=== PATIENT | female | born 1960 | race Caucasian/White ===

== ENCOUNTER 2021-04-09 15:27 | Emergency (ER) | payer BC ==
[2021-04-09] MEDS ORDERED: Aspirin Chewable 81 MG TAB ONE (15:54)
[2021-04-09 15:58] LABS: #Basophils 0.1 10x3/uL (0.0-0.2); #Eosinphils 0.2 10x3/uL (0.0-0.5); #Monocytes 0.8 10x3/uL (0.0-1.1); #Neutrophils 6.2 10x3/uL (1.5-8.4); %Basophils 0.9 % (0.0-2.0); %Eosinophils 1.7 % (0.0-6.0); %Lymphocytes 28.1 % (18.0-47.0); %Monocytes 8.2 % (0.0-10.0); %Neutrophils 60.6 % (40.0-75.0); Hemoglobin 14.1 g/dL (12.0-15.5); Mean Corpuscular HGB CONC 33.7 g/dL (32.0-36.0); Mean Corpuscular Hemoglobin 36.7 pg (27.0-33.0); Mean Corpuscular Volume 109.1 fl (81.6-98.3); Mean Platelet Volume 10.1 fl (7.4-10.4); Platelet Count 316 10x3/uL (150-450); RBC Distribution Width 13.5 % (11.5-14.5); Red Blood Cell (RBC) Count 3.84 10x6/uL (3.90-5.03); White Blood Cell (WBC) Count 10.2 10x3/uL (3.5-10.5)
[2021-04-09 16:37] LABS: Macrocytosis SLIGHT = 6-15 cells (100X) (0-5/hpf); Ovalocytes SLIGHT = 2-5 cells (100X) (0-1/hpf); Platelet Morphology Comment Appears Adequate; Tear Drops SLIGHT = 2-5 cells (100X) (0-1/hpf)
[2021-04-09 17:00] LABS: ALT (SGPT) 23 U/L (8-55); AST (SGOT) 17 U/L (5-34); Albumin 4.9 g/dL (3.4-4.8); Alkaline Phosphatase 51 U/L (40-110); Anion Gap 19 mmol/L (10-20); BUN (Urea Nitrogen) 26 mg/dL (9.8-20.1); Bilirubin, Total 0.4 mg/dL (0.2-1.2); Calc. Creatinine Clearance 0 mL/min (70-130); Calcium 9.9 mg/dL (7.8-10.44); Carbon Dioxide 21 mmol/L (23-31); Chloride 104 mmol/L (98-107); Glucose 104 mg/dL (80-115); Lipase 22 U/L (8-78); Potassium 4.5 mmol/L (3.5-5.1); Protein, Total 7.9 g/dL (5.8-8.1); Sodium 139 mmol/L (136-145)
[2021-04-09 17:04] LABS: Magnesium 2.1 mg/dL (1.6-2.6)
[2021-04-09 17:25] LABS: Free T4 (Free Thyroxine) 1.19 ng/dL (0.70-1.48); Thyroid Stimulating Hormone 0.3207 uIU/mL (0.35-4.94)
== END 2021-04-09 19:38 | disposition home or self-care (01) ==
LOC: CSHERS 15:27
DX: R07.89 Other chest pain (principal); I25.10 Atherosclerotic heart disease of native coronary artery without angina pectoris; I10 Essential (primary) hypertension; I48.91 Unspecified atrial fibrillation; Z79.01 Long term (current) use of anticoagulants
CPT/HCPCS: 36415; 80053; 83690; 83735; 84439; 84443; 84484; 85025; 93005; 94760

== ENCOUNTER 2021-05-08 12:56 | Outpatient (CLI) | payer BC ==
[2021-05-08 15:03] LABS: Hemoglobin 12.3 g/dL (12.0-15.5); Mean Corpuscular HGB CONC 32.9 g/dL (32.0-36.0); Mean Corpuscular Hemoglobin 36.1 pg (27.0-33.0); Mean Corpuscular Volume 109.7 fl (81.6-98.3); Mean Platelet Volume 10.1 fl (7.4-10.4); Platelet Count 303 10x3/uL (150-450); RBC Distribution Width 13.8 % (11.5-14.5); Red Blood Cell (RBC) Count 3.41 10x6/uL (3.90-5.03); White Blood Cell (WBC) Count 7.3 10x3/uL (3.5-10.5)
[2021-05-08 15:12] LABS: Prothrombin Time 10.6 sec (9.5-12.1)
[2021-05-08 15:15] LABS: Anion Gap 15 mmol/L (10-20); BUN (Urea Nitrogen) 22 mg/dL (9.8-20.1); Calc. Creatinine Clearance 0 mL/min (70-130); Carbon Dioxide 23 mmol/L (23-31); Chloride 108 mmol/L (98-107); Potassium 4.8 mmol/L (3.5-5.1); Sodium 141 mmol/L (136-145)
[2021-05-08 15:16] LABS: Calcium 9.5 mg/dL (7.8-10.44); Glucose 96 mg/dL (80-115)
[2021-05-09 00:39] LABS: SARS-CoV-2 PCR by NAA Not Detected (NotDetected)
== END 2021-05-08 12:57 | disposition home or self-care (01) ==
LOC: CSHLAB 12:56
PROVIDERS: ATTEND Orthopaedic Surgery
DX: Z01.812 Encounter for preprocedural laboratory examination (principal); Z20.822 Contact with and (suspected) exposure to COVID-19; M54.50 Low back pain, unspecified; M54.16 Radiculopathy, lumbar region
CPT/HCPCS: 80048; 85027; 85610; 85730; 86850; 86900; 86901; U0003; U0005

== ENCOUNTER 2021-05-13 05:27 | Inpatient (IN) | payer BC ==
[2021-05-08 15:03] LABS: Hemoglobin 12.3 g/dL (12.0-15.5); Mean Corpuscular HGB CONC 32.9 g/dL (32.0-36.0); Mean Corpuscular Hemoglobin 36.1 pg (27.0-33.0); Mean Corpuscular Volume 109.7 fl (81.6-98.3); Mean Platelet Volume 10.1 fl (7.4-10.4); Platelet Count 303 10x3/uL (150-450); RBC Distribution Width 13.8 % (11.5-14.5); Red Blood Cell (RBC) Count 3.41 10x6/uL (3.90-5.03); White Blood Cell (WBC) Count 7.3 10x3/uL (3.5-10.5)
[2021-05-08 15:12] LABS: Prothrombin Time 10.6 sec (9.5-12.1)
[2021-05-08 15:15] LABS: Anion Gap 15 mmol/L (10-20); BUN (Urea Nitrogen) 22 mg/dL (9.8-20.1); Calc. Creatinine Clearance 0 mL/min (70-130); Carbon Dioxide 23 mmol/L (23-31); Chloride 108 mmol/L (98-107); Potassium 4.8 mmol/L (3.5-5.1); Sodium 141 mmol/L (136-145)
[2021-05-08 15:16] LABS: Calcium 9.5 mg/dL (7.8-10.44); Glucose 96 mg/dL (80-115)
[2021-05-09 00:39] LABS: SARS-CoV-2 PCR by NAA Not Detected (NotDetected)
[2021-05-09 14:02] VITALS: BMI 34.9
[2021-05-13] MEDS ORDERED: Famotidine/PF 20 mg/2ml Vial ONE (06:10)
[2021-05-13] MEDS ORDERED: Lidocaine 1% MPF 2 ML VIAL ONE (06:10)
[2021-05-13] MEDS ORDERED: EPINEPHrine 1 MG/ML AMP ONE (06:39)
[2021-05-13] MEDS ORDERED: Bupivacaine 0.25% HCL 30 ML VIAL ONE (06:39)
[2021-05-13] MEDS ORDERED: Ketamine 50 MG/ML (10ML VIAL) ONE (06:50)
[2021-05-13] MEDS ORDERED: Propofol 1,000 MG/100 ML VIAL IV ONE (06:50)
[2021-05-13] MEDS ORDERED: PROPOFOL 20 ML ONE (06:53)
[2021-05-13] MEDS ORDERED: ePHEDrine Sulfate 50 MG/10 ML VIAL ONE ×3 (06:54→11:12)
[2021-05-13] MEDS ORDERED: Glycopyrrolate 0.2 MG/ML 5 ML SYRINGE ONE (06:54)
[2021-05-13] MEDS ORDERED: Succinylcholine 200 MG/10 ml SYRINGE FS ONE (06:54)
[2021-05-13] MEDS ORDERED: PHENYLEPHRINE-NS 100 MCG/ML 10 ML SYRINGE ONE (06:54)
[2021-05-13] MEDS ORDERED: Dexamethasone 20 MG/5 ML VIAL ONE (06:54)
[2021-05-13] MEDS ORDERED: Ondansetron PF 4 MG/2 ML Vial ONE (06:54)
[2021-05-13] MEDS ORDERED: Lidocaine 2% PF 5 ML VIAL ONE (06:54)
[2021-05-13] MEDS ORDERED: Metoclopramide HCl 10 MG/2 ML VIAL ONE (06:54)
[2021-05-13] MEDS ORDERED: Midazolam HCl 2 mg/2 ml Vial ONE (08:13)
[2021-05-13] MEDS ORDERED: Fentanyl 100 MCG/2 ML VIAL ONE ×3 (08:34→12:29)
[2021-05-13] MEDS ORDERED: traMADol HCl 50 MG TAB PO PRN (11:42)
[2021-05-13] MEDS ORDERED: Polyethylene Glycol 3350 17 GM Packet PO PRN (11:44)
[2021-05-13] MEDS ORDERED: HYDROcodone/Acetaminophen 5/325 mg Tablet PO PRN (11:44)
[2021-05-13] MEDS ORDERED: TETANUS AND DIPHTHERIA TOX/PF 0.5 ML DISP.SYRIN IM SCH (11:45)
[2021-05-13] MEDS ORDERED: Cyanocobalamin 1000 MCG/ML VIAL SC SCH (11:45)
[2021-05-13] MEDS ORDERED: Communication Order-Pharmacy FS SCH (11:45)
[2021-05-13] MEDS ORDERED: HYDROmorphone 0.5 MG/0.5 ML SYRINGE ONE ×2 (12:05→12:17)
[2021-05-13] MEDS: Morphine 4 MG/ML VIAL SLOW IVP PRN ×6 (13:51→23:21)
[2021-05-13] MEDS ORDERED: Estradiol 0.1mg/24 Hour Patch (Weekly) TD SCH (14:00)
[2021-05-13] MEDS: CEFAZOLIN 2 GM in Premix Bag 1 BAG IVPB SCH ×2 (14:10→20:55)
[2021-05-13] MEDS: Lorazepam 1 MG TAB PO PRN (15:30)
[2021-05-13] MEDS ORDERED: Ventolin HFA Inhaler 60 PUFF INHALER INH PRN (19:00)
[2021-05-13] MEDS ORDERED: tiZANidine HCl 4 MG TAB PO PRN (19:56)
[2021-05-13] MEDS: tiZANidine HCl 4 MG TAB PO SCH (20:52)
[2021-05-13] MEDS: Potassium Chloride 20 MEQ TAB PO SCH (20:52)
[2021-05-13] MEDS: valACYclovir 500 MG TAB PO SCH (20:52)
[2021-05-13] MEDS: Zolpidem Tartrate 5 MG TAB PO SCH (20:52)
[2021-05-13] MEDS: Aspirin 81 mg Enteric Coated Tablet PO SCH (20:52)
[2021-05-13] MEDS: Magnesium Oxide 400 MG TAB PO SCH (20:53)
[2021-05-13] MEDS: Flecainide 50 MG TAB PO SCH (20:54)
[2021-05-13] MEDS ORDERED: Lisinopril 2.5 MG TAB PO SCH (21:00)
[2021-05-13] MEDS: HYDROcodone/Acetaminophen 10/325 mg Tablet PO PRN ×2 (22:30→23:09)
[2021-05-14] MEDS ORDERED: Simethicone Chewable 80 MG TAB PO PRN (01:19)
[2021-05-14] MEDS ORDERED: Calcium Carbonate 500 MG ChewTAB PO PRN (01:20)
[2021-05-14] MEDS: Morphine 4 MG/ML VIAL SLOW IVP PRN ×7 (01:20→22:09)
[2021-05-14] MEDS ORDERED: Ondansetron PF 4 MG/2 ML Vial IVP SCH (01:30)
[2021-05-14] MEDS ORDERED: Mometasone/Formoterol 200/5 60 PUFF INH PRN (07:00)
[2021-05-14] MEDS: CEFAZOLIN 2 GM in Premix Bag 1 BAG IVPB SCH ×2 (07:07→14:07)
[2021-05-14] MEDS: Ondansetron PF 4 MG/2 ML Vial IVP PRN ×2 (08:37→14:28)
[2021-05-14] MEDS: Flecainide 50 MG TAB PO SCH ×2 (08:51→20:16)
[2021-05-14] MEDS: Multivit, Therapeutic 1 TAB PO SCH (08:52)
[2021-05-14] MEDS: valACYclovir 500 MG TAB PO SCH ×2 (08:52→20:28)
[2021-05-14] MEDS: Aspirin 81 mg Enteric Coated Tablet PO SCH ×2 (08:53→20:17)
[2021-05-14] MEDS: Magnesium Oxide 400 MG TAB PO SCH ×2 (08:53→20:28)
[2021-05-14] MEDS: Lorazepam 1 MG TAB PO PRN (08:53)
[2021-05-14] MEDS: Fish Oil 1,000 MG CAP PO SCH (08:54)
[2021-05-14] MEDS ORDERED: Nitroglycerin 0.4 MG TAB (25 Tab Bottle) SL SCH (09:00)
[2021-05-14] MEDS ORDERED: Aspirin 81 mg Enteric Coated Tablet PO SCH (09:00)
[2021-05-14] MEDS: HYDROcodone/Acetaminophen 10/325 mg Tablet PO PRN ×4 (10:10→20:14)
[2021-05-14] MEDS ORDERED: FLU VACC QS2021-22(6MOS UP)/PF 60 MCG/0.5 ML SYRINGE IM ONE (20:15)
[2021-05-14] MEDS: Atenolol 25 MG TAB PO SCH (20:16)
[2021-05-14] MEDS: Lisinopril 2.5 MG TAB PO SCH (20:18)
[2021-05-14] MEDS ORDERED: Albuterol Sulfate 2.5 mg/3 ml Neb NEB PRN (20:19)
[2021-05-14] MEDS ORDERED: Cepastat Lozenges 1 LOZ PO PRN (20:20)
[2021-05-14] MEDS: Potassium Chloride 20 MEQ TAB PO SCH (20:29)
[2021-05-14] MEDS: tiZANidine HCl 4 MG TAB PO SCH (20:29)
[2021-05-14] MEDS ORDERED: Atenolol 25 MG TAB PO SCH (21:00)
[2021-05-14] MEDS ORDERED: Benzonatate 100 MG CAP PO PRN (21:48)
[2021-05-14] MEDS: Albuterol Sulfate 2.5 mg/3 ml Neb NEB PRN (22:15)
[2021-05-14] MEDS: Zolpidem Tartrate 5 MG TAB PO SCH (22:58)
[2021-05-15] MEDS: HYDROcodone/Acetaminophen 10/325 mg Tablet PO PRN ×3 (00:23→14:56)
[2021-05-15] MEDS: Morphine 4 MG/ML VIAL SLOW IVP PRN ×2 (03:44→07:36)
[2021-05-15 05:04] LABS: #Eosinphils 0.1 10x3/uL (0.0-0.5); #Monocytes 0.9 10x3/uL (0.0-1.1); #Neutrophils 4.2 10x3/uL (1.5-8.4); %Basophils 0.4 % (0.0-2.0); %Lymphocytes 31.8 % (18.0-47.0); %Monocytes 11.9 % (0.0-10.0); %Neutrophils 54.6 % (40.0-75.0); Hemoglobin 8.6 g/dL (12.0-15.5); Mean Corpuscular HGB CONC 32.8 g/dL (32.0-36.0); Mean Corpuscular Hemoglobin 36.6 pg (27.0-33.0); Mean Corpuscular Volume 111.5 fl (81.6-98.3); Mean Platelet Volume 10.4 fl (7.4-10.4); Platelet Count 187 10x3/uL (150-450); Red Blood Cell (RBC) Count 2.35 10x6/uL (3.90-5.03); White Blood Cell (WBC) Count 7.7 10x3/uL (3.5-10.5)
[2021-05-15 05:13] LABS: Anion Gap 10 mmol/L (10-20); BUN (Urea Nitrogen) 13 mg/dL (9.8-20.1); Calc. Creatinine Clearance 117 mL/min (70-130); Calcium 8.1 mg/dL (7.8-10.44); Carbon Dioxide 24 mmol/L (23-31); Chloride 106 mmol/L (98-107); Glucose 96 mg/dL (80-115); Sodium 136 mmol/L (136-145)
[2021-05-15 06:08] LABS: Macrocytosis SLIGHT = 6-15 cells (100X) (0-5/hpf)
[2021-05-15 06:09] LABS: Spherocytes SLIGHT = 1-5 cells (100X) (None Seen)
[2021-05-15] MEDS: Multivit, Therapeutic 1 TAB PO SCH (09:50)
[2021-05-15] MEDS: Fish Oil 1,000 MG CAP PO SCH (09:51)
[2021-05-15] MEDS: Magnesium Oxide 400 MG TAB PO SCH ×2 (09:51→22:14)
[2021-05-15] MEDS: Aspirin 81 mg Enteric Coated Tablet PO SCH ×2 (09:51→22:12)
[2021-05-15] MEDS: valACYclovir 500 MG TAB PO SCH ×2 (09:53→22:13)
[2021-05-15] MEDS: Flecainide 50 MG TAB PO SCH ×2 (09:54→22:14)
[2021-05-15] MEDS ORDERED: Acetaminophen 325 MG Suppository PR PRN (15:05)
[2021-05-15] MEDS ORDERED: Lidocaine 5% Patch TD PRN (15:06)
[2021-05-15] MEDS: Lorazepam 1 MG TAB PO PRN (15:11)
[2021-05-15] MEDS ORDERED: Morphine IR Tab 15 MG TAB PO PRN (15:13)
[2021-05-15] MEDS ORDERED: Lorazepam 1 MG TAB PO PRN (15:18)
[2021-05-15] MEDS ORDERED: Morphine 4 MG/ML VIAL SLOW IVP PRN (15:18)
[2021-05-15] MEDS ORDERED: DULoxetine 30 MG CAP PO SCH (15:30)
[2021-05-15] MEDS: Acetaminophen 500 MG TAB PO SCH ×2 (18:45→22:13)
[2021-05-15] MEDS: Potassium Chloride 20 MEQ TAB PO SCH (22:13)
[2021-05-15] MEDS: Zolpidem Tartrate 5 MG TAB PO SCH (22:15)
[2021-05-15] MEDS: Gabapentin 100 MG CAP PO SCH (22:15)
[2021-05-15] MEDS: Atenolol 25 MG TAB PO SCH (22:15)
[2021-05-15] MEDS: Lisinopril 2.5 MG TAB PO SCH (22:15)
[2021-05-15] MEDS: tiZANidine HCl 4 MG TAB PO SCH (22:15)
[2021-05-16] MEDS: Acetaminophen 500 MG TAB PO SCH ×2 (04:10→09:38)
[2021-05-16] MEDS: HYDROcodone/Acetaminophen 5/325 mg Tablet PO PRN ×4 (04:13→18:55)
[2021-05-16 04:24] LABS: Anion Gap 14 mmol/L (10-20); BUN (Urea Nitrogen) 9 mg/dL (9.8-20.1); Calc. Creatinine Clearance 129 mL/min (70-130); Calcium 8.7 mg/dL (7.8-10.44); Carbon Dioxide 19 mmol/L (23-31); Chloride 109 mmol/L (98-107); Glucose 88 mg/dL (80-115); Potassium 4.3 mmol/L (3.5-5.1); Sodium 138 mmol/L (136-145)
[2021-05-16] MEDS ORDERED: DULoxetine 30 MG CAP PO SCH (09:00)
[2021-05-16] MEDS ORDERED: PENTOSAN POLYSULFATE SODIUM 100 MG PO SCH (09:00)
[2021-05-16] MEDS ORDERED: BEMPEDOIC ACID 180 MG PO SCH (09:00)
[2021-05-16] MEDS: Gabapentin 100 MG CAP PO SCH (09:37)
[2021-05-16] MEDS: Fish Oil 1,000 MG CAP PO SCH (09:37)
[2021-05-16] MEDS: Multivit, Therapeutic 1 TAB PO SCH (09:38)
[2021-05-16] MEDS: valACYclovir 500 MG TAB PO SCH (09:38)
[2021-05-16] MEDS: Magnesium Oxide 400 MG TAB PO SCH (09:38)
[2021-05-16] MEDS: Flecainide 50 MG TAB PO SCH (09:38)
[2021-05-16] MEDS: Aspirin 81 mg Enteric Coated Tablet PO SCH (09:38)
[2021-05-16 12:58] VITALS: TEMP 97.1
[2021-05-16 13:26] VITALS: BP 108/65
[2021-05-16] MEDS: GARLIC PO SCH (14:53)
[2021-05-16] MEDS: Albuterol Sulfate 2.5 mg/3 ml Neb NEB PRN (15:09)
[2021-05-16] MEDS ORDERED: Acetaminophen 325 MG TAB PO SCH (16:00)
[2021-05-17] MEDS ORDERED: ESTRADIOL VAG SCH (09:00)
== END 2021-05-16 19:15 | DRG 454 ==
LOC: CSHSDC 05:27 → CSHTELE 13:39
PROVIDERS: ADMIT Orthopaedic Surgery; ATTEND Orthopaedic Surgery
PROC: 0SG00AJ Fusion of Lumbar Vertebral Joint with Interbody Fusion Device, Posterior Approach, Anterior Column, Open Approach (ICD-10-PCS; principal; 2021-05-13)
PROC: 0SG0071 Fusion of Lumbar Vertebral Joint with Autologous Tissue Substitute, Posterior Approach, Posterior Column, Open Approach (ICD-10-PCS; 2021-05-13)
DX: M51.16 Intervertebral disc disorders with radiculopathy, lumbar region (principal); F11.20 Opioid dependence, uncomplicated; F13.20 Sedative, hypnotic or anxiolytic dependence, uncomplicated; Z20.822 Contact with and (suspected) exposure to COVID-19; G89.29 Other chronic pain; M41.9 Scoliosis, unspecified; I25.10 Atherosclerotic heart disease of native coronary artery without angina pectoris; I10 Essential (primary) hypertension; E78.5 Hyperlipidemia, unspecified; J45.909 Unspecified asthma, uncomplicated; I48.0 Paroxysmal atrial fibrillation; M48.061 Spinal stenosis, lumbar region without neurogenic claudication; E03.9 Hypothyroidism, unspecified; F41.9 Anxiety disorder, unspecified; F32.A Depression, unspecified; R50.82 Postprocedural fever; Z95.1 Presence of aortocoronary bypass graft; Z95.5 Presence of coronary angioplasty implant and graft; Z88.2 Allergy status to sulfonamides; Z88.1 Allergy status to other antibiotic agents; Z88.8 Allergy status to other drugs, medicaments and biological substances; Z79.01 Long term (current) use of anticoagulants; Z79.899 Other long term (current) drug therapy; Z90.89 Acquired absence of other organs; Z90.710 Acquired absence of both cervix and uterus; Z98.1 Arthrodesis status; Z79.82 Long term (current) use of aspirin
CPT/HCPCS: 36415; 71045; 72110; 76000; 80048; 85025; 85027; 85610; 85730; 86850; 86900; 86901; 94640; 94760; C1713; C1762; C1889; J0171; J0690; J1100; J1170; J2001; J2250; J2270; J2405; J2704; J2765; J3010; J7611; S0020; S0028; U0003; U0005

== ENCOUNTER 2021-06-23 13:53 | Emergency (ER) | payer BC ==
[2021-06-23 16:01] LABS: #Basophils 0.1 10x3/uL (0.0-0.2); #Eosinphils 0.1 10x3/uL (0.0-0.5); #Monocytes 0.6 10x3/uL (0.0-1.1); #Neutrophils 3.1 10x3/uL (1.5-8.4); %Eosinophils 1.9 % (0.0-6.0); %Lymphocytes 32.8 % (18.0-47.0); %Neutrophils 53.1 % (40.0-75.0); Mean Corpuscular Hemoglobin 33.8 pg (27.0-33.0); Mean Corpuscular Volume 105.8 fl (81.6-98.3); Mean Platelet Volume 10.1 fl (7.4-10.4); Platelet Count 358 10x3/uL (150-450); RBC Distribution Width 13.1 % (11.5-14.5); Red Blood Cell (RBC) Count 3.25 10x6/uL (3.90-5.03); White Blood Cell (WBC) Count 5.8 10x3/uL (3.5-10.5)
[2021-06-23 16:21] LABS: ALT (SGPT) 12 U/L (8-55); AST (SGOT) 15 U/L (5-34); Albumin 4.2 g/dL (3.4-4.8); Alkaline Phosphatase 48 U/L (40-110); Anion Gap 15 mmol/L (10-20); BUN (Urea Nitrogen) 22 mg/dL (9.8-20.1); Bilirubin, Total 0.3 mg/dL (0.2-1.2); Calc. Creatinine Clearance 0 mL/min (70-130); Calcium 9.2 mg/dL (7.8-10.44); Carbon Dioxide 21 mmol/L (23-31); Chloride 108 mmol/L (98-107); Globulin 2.1 g/dL (2.4-3.5); Glucose 85 mg/dL (80-115); Lipase 31 U/L (8-78); Protein, Total 6.3 g/dL (5.8-8.1); Sodium 139 mmol/L (136-145)
[2021-06-23] MEDS ORDERED: Nitroglycerin 2% Ointment 1 INCH/1 GM Packet ONE (17:36)
== END 2021-06-23 18:16 | disposition home or self-care (01) ==
LOC: CSHERS 13:53
DX: R42 Dizziness and giddiness (principal); I25.10 Atherosclerotic heart disease of native coronary artery without angina pectoris; I48.91 Unspecified atrial fibrillation; I10 Essential (primary) hypertension
CPT/HCPCS: 70450; 71045; 80053; 83690; 84484; 85025; 93005

== ENCOUNTER 2021-08-05 11:58 | Emergency (ER) | payer BC ==
[2021-08-05 12:34] LABS: #Basophils 0.1 10x3/uL (0.0-0.2); #Eosinphils 0.1 10x3/uL (0.0-0.5); #Monocytes 0.8 10x3/uL (0.0-1.1); #Neutrophils 3.3 10x3/uL (1.5-8.4); %Basophils 0.8 % (0.0-2.0); %Eosinophils 1.9 % (0.0-6.0); %Lymphocytes 32.2 % (18.0-47.0); %Monocytes 12.8 % (0.0-10.0); Hemoglobin 11.8 g/dL (12.0-15.5); Mean Corpuscular HGB CONC 33.5 g/dL (32.0-36.0); Mean Corpuscular Hemoglobin 33.1 pg (27.0-33.0); Mean Corpuscular Volume 98.6 fl (81.6-98.3); Mean Platelet Volume 10.2 fl (7.4-10.4); Platelet Count 281 10x3/uL (150-450); RBC Distribution Width 15.4 % (11.5-14.5); Red Blood Cell (RBC) Count 3.57 10x6/uL (3.90-5.03); White Blood Cell (WBC) Count 6.3 10x3/uL (3.5-10.5)
[2021-08-05 12:46] LABS: ALT (SGPT) 23 U/L (8-55); AST (SGOT) 18 U/L (5-34); Albumin 4.4 g/dL (3.4-4.8); Alkaline Phosphatase 46 U/L (40-110); Anion Gap 15 mmol/L (10-20); BUN (Urea Nitrogen) 24 mg/dL (9.8-20.1); Bilirubin, Total 0.4 mg/dL (0.2-1.2); Calc. Creatinine Clearance 0 mL/min (70-130); Calcium 9.1 mg/dL (7.8-10.44); Carbon Dioxide 22 mmol/L (23-31); Chloride 106 mmol/L (98-107); Globulin 2.2 g/dL (2.4-3.5); Glucose 96 mg/dL (80-115); Potassium 4.5 mmol/L (3.5-5.1); Protein, Total 6.6 g/dL (5.8-8.1); Sodium 138 mmol/L (136-145)
[2021-08-05] MEDS ORDERED: Nitroglycerin 2% Ointment 1 INCH/1 GM Packet ONE (14:20)
[2021-08-05 14:53] LABS: Bilirubin Neg (Negative); Blood, Urine Negative (Negative); Clarity Clear (Clear); Glucose, Urine (Dipstick) Normal (Negative); Ketone, Urine Negative (Negative); Leukocyte Negative (Negative); Nitrite Negative (Negative); Protein, Urine (Dipstick) Negative (Neg-Trace); Urobilinogen Normal mg/dL (Less than 2)
[2021-08-05 15:37] LABS: Troponin I Less than 0.010 ng/mL (< 0.028)
== END 2021-08-05 15:47 | disposition home or self-care (01) ==
LOC: CSHERS 11:58
DX: R07.2 Precordial pain (principal); I10 Essential (primary) hypertension; I48.91 Unspecified atrial fibrillation
CPT/HCPCS: 36415; 71045; 80053; 81003; 83880; 84484; 85025; 93005

== ENCOUNTER 2021-12-16 13:20 | Observation (INO) | payer BC ==
[2021-12-16 14:42] LABS: #Basophils 0.1 10x3/uL (0.0-0.2); #Eosinphils 0.1 10x3/uL (0.0-0.5); #Monocytes 0.7 10x3/uL (0.0-1.1); #Neutrophils 5.7 10x3/uL (1.5-8.4); %Basophils 0.6 % (0.0-2.0); %Eosinophils 1.3 % (0.0-6.0); %Lymphocytes 23.4 % (18.0-47.0); %Monocytes 8.3 % (0.0-10.0); %Neutrophils 66.2 % (40.0-75.0); Hemoglobin 12.9 g/dL (12.0-15.5); Mean Corpuscular HGB CONC 34.3 g/dL (32.0-36.0); Mean Corpuscular Hemoglobin 35.1 pg (27.0-33.0); Mean Corpuscular Volume 102.5 fl (81.6-98.3); Mean Platelet Volume 10.1 fl (7.4-10.4); Platelet Count 260 10x3/uL (150-450); RBC Distribution Width 14.7 % (11.5-14.5); Red Blood Cell (RBC) Count 3.67 10x6/uL (3.90-5.03); White Blood Cell (WBC) Count 8.7 10x3/uL (3.5-10.5)
[2021-12-16 15:01] LABS: ALT (SGPT) 23 U/L (8-55); Albumin 4.2 g/dL (3.4-4.8); Alkaline Phosphatase 47 U/L (40-110); Anion Gap 19 mmol/L (10-20); BUN (Urea Nitrogen) 23 mg/dL (9.8-20.1); Bilirubin, Total 0.4 mg/dL (0.2-1.2); Calc. Creatinine Clearance 0 mL/min (70-130); Calcium 9.1 mg/dL (7.8-10.44); Carbon Dioxide 21 mmol/L (23-31); Chloride 105 mmol/L (98-107); Estimated GFR 83; Globulin 2.8 g/dL (2.4-3.5); Glucose 81 mg/dL (80-115); Potassium 3.8 mmol/L (3.5-5.1); Sodium 141 mmol/L (136-145)
[2021-12-16 15:02] LABS: AST (SGOT) 28 U/L (5-34)
[2021-12-16] MEDS ORDERED: Acetaminophen 325 MG TAB PO PRN (17:07)
[2021-12-16] MEDS ORDERED: Ondansetron ODT 4 MG TAB PO PRN (17:07)
[2021-12-16] MEDS ORDERED: Senokot S 8.6-50 MG TAB PO PRN (17:07)
[2021-12-16 17:52] LABS: Magnesium 1.7 mg/dL (1.6-2.6)
[2021-12-16 18:28] LABS: Troponin I Less than 0.010 ng/mL (< 0.028)
[2021-12-16] MEDS ORDERED: Nitroglycerin 2% Ointment 1 INCH/1 GM Packet TOP SCH (18:30)
[2021-12-16 19:51] LABS: Bilirubin Neg (Negative); Blood, Urine Negative (Negative); Clarity Clear (Clear); Glucose, Urine (Dipstick) Normal (Negative); Ketone, Urine 50 mg/dL (Negative); Leukocyte Negative (Negative); Nitrite Negative (Negative); Protein, Urine (Dipstick) Negative (Neg-Trace); Specific Gravity, Urine 1.025 (1.002-1.036); Urobilinogen Normal mg/dL (Less than 2)
[2021-12-16 20:04] LABS: Bacteria/HPF Rare-Few HPF (None Seen); Mucous/LPF Rare LPF (<2+); RBC/HPF None Seen HPF (0-3); Squamous Epithelial 0-3 HPF (0-3); WBC/HPF 0-3 HPF (0-3)
[2021-12-16 20:27] VITALS: BMI 34.8
[2021-12-16] MEDS: Ondansetron PF 4 MG/2 ML Vial IVP PRN (20:48)
[2021-12-16 20:51] LABS: SARS-CoV-2 NAA Rapid Test Not Detected (NotDetected)
[2021-12-16] MEDS ORDERED: Zolpidem Tartrate 5 MG TAB PO SCH (21:00)
[2021-12-16 21:31] LABS: Troponin I Less than 0.010 ng/mL (< 0.028)
[2021-12-16] MEDS ORDERED: Ventolin HFA Inhaler 60 PUFF INHALER INH PRN (21:47)
[2021-12-16] MEDS ORDERED: [UNRECOGNIZED DRUG - OTHER] INH PRN (21:47)
[2021-12-16] MEDS ORDERED: Lorazepam 1 MG TAB PO PRN (21:47)
[2021-12-16] MEDS ORDERED: Simethicone Chewable 80 MG TAB PO PRN (21:47)
[2021-12-16] MEDS ORDERED: Polyethylene Glycol 3350 17 GM Packet PO PRN (21:47)
[2021-12-16] MEDS ORDERED: FLUTICASONE INH PRN (21:47)
[2021-12-16] MEDS ORDERED: SALMETEROL INH PRN (21:47)
[2021-12-16] MEDS: Apixaban 2.5 MG TAB PO SCH (21:57)
[2021-12-17] MEDS: Acetaminophen 325 MG TAB PO SCH ×3 (01:04→12:51)
[2021-12-17 04:29] LABS: #Eosinphils 0.1 10x3/uL (0.0-0.5); #Monocytes 0.6 10x3/uL (0.0-1.1); #Neutrophils 3.6 10x3/uL (1.5-8.4); %Basophils 0.5 % (0.0-2.0); %Eosinophils 2.2 % (0.0-6.0); %Lymphocytes 31.7 % (18.0-47.0); %Monocytes 8.8 % (0.0-10.0); %Neutrophils 56.5 % (40.0-75.0); Hemoglobin 12.4 g/dL (12.0-15.5); Mean Corpuscular Hemoglobin 35.3 pg (27.0-33.0); Mean Corpuscular Volume 100.9 fl (81.6-98.3); Mean Platelet Volume 10.1 fl (7.4-10.4); Platelet Count 238 10x3/uL (150-450); RBC Distribution Width 14.9 % (11.5-14.5); Red Blood Cell (RBC) Count 3.51 10x6/uL (3.90-5.03); White Blood Cell (WBC) Count 6.4 10x3/uL (3.5-10.5)
[2021-12-17 04:47] LABS: Anion Gap 12 mmol/L (10-20); BUN (Urea Nitrogen) 23 mg/dL (9.8-20.1); Calc. Creatinine Clearance 109 mL/min (70-130); Calcium 9.1 mg/dL (7.8-10.44); Carbon Dioxide 25 mmol/L (23-31); Chloride 106 mmol/L (98-107); Estimated GFR 97; Glucose 89 mg/dL (80-115); Potassium 3.8 mmol/L (3.5-5.1); Sodium 139 mmol/L (136-145)
[2021-12-17] MEDS: HYDROcodone/Acetaminophen 5/325 mg Tablet PO PRN ×2 (05:13→12:45)
[2021-12-17] MEDS: Apixaban 2.5 MG TAB PO SCH (08:45)
[2021-12-17] MEDS ORDERED: BEMPEDOIC ACID 180 MG PO SCH (09:00)
[2021-12-17] MEDS ORDERED: Flecainide 50 MG TAB PO SCH (09:00)
[2021-12-17] MEDS ORDERED: Magnesium Oxide 400 MG TAB PO SCH (09:00)
[2021-12-17] MEDS ORDERED: Nitroglycerin 2% Ointment 1 INCH/1 GM Packet TOP SCH (09:00)
[2021-12-17] MEDS ORDERED: Fish Oil 1,000 MG CAP PO SCH (09:00)
[2021-12-17] MEDS ORDERED: DULoxetine 30 MG CAP PO SCH (09:00)
[2021-12-17] MEDS ORDERED: PENTOSAN POLYSULFATE SODIUM 100 MG PO SCH (09:00)
[2021-12-17] MEDS ORDERED: valACYclovir 500 MG TAB PO SCH (09:00)
[2021-12-17] MEDS ORDERED: Multivit, Therapeutic 1 TAB PO SCH (09:00)
[2021-12-17] MEDS ORDERED: Atenolol 25 MG TAB PO SCH (09:00)
[2021-12-17] MEDS: Nitroglycerin 0.4 MG TAB (25 Tab Bottle) SL SCH ×3 (09:05→14:15)
[2021-12-17 11:45] VITALS: TEMP 96.7
[2021-12-17] MEDS ORDERED: Bumetanide 1 MG TAB PO SCH ×2 (12:00→21:00)
[2021-12-17] MEDS ORDERED: Amoxicillin/Potassium Clav 875 MG TAB PO SCH ×2 (12:30→21:00)
[2021-12-17] MEDS ORDERED: Fluticasone Propionate Nasal Spray 16 gm Bottle NASAL SCH (13:00)
[2021-12-17 13:12] VITALS: BP 112/67
[2021-12-17] MEDS: Ondansetron PF 4 MG/2 ML Vial IVP PRN (14:17)
[2021-12-17] MEDS ORDERED: Morphine 2 MG/ML VIAL SLOW IVP SCH (16:45)
[2021-12-17] MEDS ORDERED: Clopidogrel Bisulfate 75 MG TAB PO SCH (21:00)
[2021-12-17] MEDS ORDERED: Lisinopril 2.5 MG TAB PO SCH (21:00)
[2021-12-17] MEDS ORDERED: (Garlic [Garlic] 1 TABLET Tablet) PO SCH (21:00)
[2021-12-17] MEDS ORDERED: Estradiol 0.1mg/24 Hour Patch (Weekly) TD SCH (21:00)
[2021-12-17] MEDS ORDERED: tiZANidine HCl 4 MG TAB PO SCH (21:00)
[2021-12-17] MEDS ORDERED: Potassium Chloride 20 MEQ TAB PO SCH (21:00)
[2021-12-18] MEDS ORDERED: ESTRADIOL VAG SCH (09:00)
== END 2021-12-17 14:15 | disposition home or self-care (01) ==
LOC: CSHERS 13:20 → INTOOBSV 17:47 → CSHTELE 17:47
PROVIDERS: ADMIT Internal Medicine; ATTEND Internal Medicine
DX: R07.89 Other chest pain (principal); I16.0 Hypertensive urgency; I11.0 Hypertensive heart disease with heart failure; I50.32 Chronic diastolic (congestive) heart failure; I48.0 Paroxysmal atrial fibrillation; I25.10 Atherosclerotic heart disease of native coronary artery without angina pectoris; N39.0 Urinary tract infection, site not specified; G89.29 Other chronic pain; M54.9 Dorsalgia, unspecified; J45.909 Unspecified asthma, uncomplicated; E03.9 Hypothyroidism, unspecified; K44.9 Diaphragmatic hernia without obstruction or gangrene; I08.1 Rheumatic disorders of both mitral and tricuspid valves; E78.5 Hyperlipidemia, unspecified; Z79.01 Long term (current) use of anticoagulants; Z79.02 Long term (current) use of antithrombotics/antiplatelets; Z79.2 Long term (current) use of antibiotics; Z79.899 Other long term (current) drug therapy; Z88.1 Allergy status to other antibiotic agents; Z88.2 Allergy status to sulfonamides; Z88.8 Allergy status to other drugs, medicaments and biological substances; Z95.1 Presence of aortocoronary bypass graft; Z95.5 Presence of coronary angioplasty implant and graft; Z20.822 Contact with and (suspected) exposure to COVID-19
CPT/HCPCS: 36415; 71045; 80048; 80053; 81001; 83735; 84484; 85025; 93005; 93010; 93306; 94760; 96374; 96376; G0378; J2405; U0002

== ENCOUNTER 2022-02-04 05:42 | Day surgery (SDC) | payer BC ==
[2022-01-31 10:42] VITALS: BMI 35.9
[2022-02-04] MEDS ORDERED: Lidocaine 1% MPF 2 ML VIAL ONE ×2 (06:54→08:16)
[2022-02-04] MEDS ORDERED: PROPOFOL 40 ML ONE (07:19)
[2022-02-04] MEDS ORDERED: Lidocaine 1% PF 5 ML VIAL ONE (07:20)
[2022-02-04] MEDS ORDERED: Midazolam HCl 2 mg/2 ml Vial ONE (09:14)
[2022-02-04] MEDS ORDERED: Ondansetron PF 4 MG/2 ML Vial ONE (11:14)
== END 2022-02-04 12:30 | disposition home or self-care (01) ==
LOC: CSHSDC 05:42
PROVIDERS: ATTEND Surgery
PROC: 0DB68ZX Excision of Stomach, Via Natural or Artificial Opening Endoscopic, Diagnostic (ICD-10-PCS; principal; 2022-02-04)
DX: K29.50 Unspecified chronic gastritis without bleeding (principal); K21.9 Gastro-esophageal reflux disease without esophagitis; K44.9 Diaphragmatic hernia without obstruction or gangrene; I10 Essential (primary) hypertension; E78.00 Pure hypercholesterolemia, unspecified; I25.10 Atherosclerotic heart disease of native coronary artery without angina pectoris; I48.91 Unspecified atrial fibrillation; J45.909 Unspecified asthma, uncomplicated; E04.9 Nontoxic goiter, unspecified; M19.90 Unspecified osteoarthritis, unspecified site; Z87.01 Personal history of pneumonia (recurrent); Z86.19 Personal history of other infectious and parasitic diseases; Z79.82 Long term (current) use of aspirin; Z79.01 Long term (current) use of anticoagulants; Z79.02 Long term (current) use of antithrombotics/antiplatelets; Z79.899 Other long term (current) drug therapy; K82.8 Other specified diseases of gallbladder; Z95.1 Presence of aortocoronary bypass graft; Z98.890 Other specified postprocedural states
CPT/HCPCS: 88305; J2250; J2405; J2704

== ENCOUNTER 2022-02-25 13:41 | Emergency (ER) | payer BC ==
[~2022-02-25 13:41] MED LIST: Iopamidol 300 61% 100 ML VIAL FS ONE
[2022-02-25 15:27] LABS: #Basophils 0.1 10x3/uL (0.0-0.2); #Eosinphils 0.1 10x3/uL (0.0-0.5); #Monocytes 0.6 10x3/uL (0.0-1.1); #Neutrophils 3.1 10x3/uL (1.5-8.4); %Basophils 0.9 % (0.0-2.0); %Eosinophils 1.6 % (0.0-6.0); %Lymphocytes 31.3 % (18.0-47.0); %Monocytes 11.4 % (0.0-10.0); %Neutrophils 54.6 % (40.0-75.0); Hemoglobin 12.1 g/dL (12.0-15.5); Mean Corpuscular HGB CONC 34.1 g/dL (32.0-36.0); Mean Corpuscular Hemoglobin 35.5 pg (27.0-33.0); Mean Corpuscular Volume 104.1 fl (81.6-98.3); Mean Platelet Volume 9.9 fl (7.4-10.4); Platelet Count 232 10x3/uL (150-450); RBC Distribution Width 14.1 % (11.5-14.5); Red Blood Cell (RBC) Count 3.41 10x6/uL (3.90-5.03); White Blood Cell (WBC) Count 5.6 10x3/uL (3.5-10.5)
[2022-02-25 15:42] LABS: ALT (SGPT) 30 U/L (8-55); AST (SGOT) 25 U/L (5-34); Albumin 4.1 g/dL (3.4-4.8); Alkaline Phosphatase 52 U/L (40-110); Anion Gap 15 mmol/L (10-20); BUN (Urea Nitrogen) 13 mg/dL (9.8-20.1); Bilirubin, Total 0.3 mg/dL (0.2-1.2); Calc. Creatinine Clearance 0 mL/min (70-130); Calcium 9.3 mg/dL (7.8-10.44); Carbon Dioxide 25 mmol/L (23-31); Chloride 106 mmol/L (98-107); Estimated GFR 94; Globulin 2.4 g/dL (2.4-3.5); Glucose 80 mg/dL (80-115); Lipase 16 U/L (8-78); Protein, Total 6.5 g/dL (5.8-8.1); Sodium 141 mmol/L (136-145)
[2022-02-25] MEDS ORDERED: Morphine 4 MG/ML VIAL ONE (15:57)
[2022-02-25] MEDS ORDERED: Ondansetron PF 4 MG/2 ML Vial ONE (16:17)
[2022-02-25 17:55] LABS: Bilirubin Neg (Negative); Blood, Urine Negative (Negative); Clarity Clear (Clear); Glucose, Urine (Dipstick) Normal (Negative); Ketone, Urine Negative (Negative); Leukocyte Negative (Negative); Nitrite Negative (Negative); Protein, Urine (Dipstick) Negative (Neg-Trace); Specific Gravity, Urine 1.005 (1.005-1.030); Urobilinogen Normal mg/dL (Less than 2)
== END 2022-02-25 19:05 | disposition home or self-care (01) ==
LOC: CSHERS 13:41
DX: R10.13 Epigastric pain (principal); R10.30 Lower abdominal pain, unspecified; I25.10 Atherosclerotic heart disease of native coronary artery without angina pectoris; I11.0 Hypertensive heart disease with heart failure; I50.30 Unspecified diastolic (congestive) heart failure; I48.91 Unspecified atrial fibrillation
CPT/HCPCS: 71045; 74177; 80053; 81003; 83605; 83690; 84484; 85025; 93005; 96374; 96375; J2270; J2405; Q9967

== ENCOUNTER 2022-04-18 12:34 | Emergency (ER) | payer BC ==
[2022-04-18 13:14] LABS: #Eosinphils 0.1 10x3/uL (0.0-0.5); #Monocytes 0.7 10x3/uL (0.0-1.1); #Neutrophils 4.1 10x3/uL (1.5-8.4); %Basophils 0.5 % (0.0-2.0); %Eosinophils 1.9 % (0.0-6.0); %Lymphocytes 20.4 % (18.0-47.0); %Monocytes 10.8 % (0.0-10.0); %Neutrophils 66.1 % (40.0-75.0); Hemoglobin 10.5 g/dL (12.0-15.5); Mean Corpuscular HGB CONC 33.2 g/dL (32.0-36.0); Mean Corpuscular Hemoglobin 33.9 pg (27.0-33.0); Mean Corpuscular Volume 101.9 fl (81.6-98.3); Mean Platelet Volume 9.8 fl (7.4-10.4); Platelet Count 463 10x3/uL (150-450); RBC Distribution Width 15.7 % (11.5-14.5); White Blood Cell (WBC) Count 6.2 10x3/uL (3.5-10.5)
[2022-04-18 13:30] LABS: ALT (SGPT) 8 U/L (8-55); AST (SGOT) 13 U/L (5-34); Albumin 3.7 g/dL (3.4-4.8); Alkaline Phosphatase 63 U/L (40-110); Anion Gap 17 mmol/L (10-20); BUN (Urea Nitrogen) 8 mg/dL (9.8-20.1); Bilirubin, Total 0.8 mg/dL (0.2-1.2); Calc. Creatinine Clearance 0 mL/min (70-130); Calcium 9.1 mg/dL (7.8-10.44); Carbon Dioxide 19 mmol/L (23-31); Chloride 105 mmol/L (98-107); Estimated GFR 82; Globulin 2.5 g/dL (2.4-3.5); Glucose 112 mg/dL (80-115); Potassium 3.9 mmol/L (3.5-5.1); Protein, Total 6.2 g/dL (5.8-8.1); Sodium 137 mmol/L (136-145)
[2022-04-18 14:13] LABS: Bilirubin Neg (Negative); Blood, Urine Negative (Negative); Clarity Sl. Cloudy (Clear); Glucose, Urine (Dipstick) Normal (Negative); Ketone, Urine Negative (Negative); Leukocyte 25 (Negative); Nitrite Negative (Negative); Protein, Urine (Dipstick) Negative (Neg-Trace); Urobilinogen Normal mg/dL (Less than 2)
[2022-04-18 14:23] LABS: Bacteria/HPF Rare-Few HPF (None Seen); RBC/HPF 0-3 HPF (0-3)
[2022-04-18] MEDS ORDERED: Promethazine 25 MG TAB ONE (16:02)
== END 2022-04-18 16:06 | disposition home or self-care (01) ==
LOC: CSHERS 12:34
DX: R53.1 Weakness (principal); R11.0 Nausea; I25.10 Atherosclerotic heart disease of native coronary artery without angina pectoris; I48.91 Unspecified atrial fibrillation; I11.0 Hypertensive heart disease with heart failure; I50.30 Unspecified diastolic (congestive) heart failure
CPT/HCPCS: 71045; 80053; 81003; 81015; 84484; 85025; 93005; Q0169

== ENCOUNTER 2025-01-18 14:02 | Outpatient (CLI) | payer MEDICARE, OTHER ==
[2025-01-18 14:52] LABS: Hematocrit 33.6 % (34.9-44.5); Hemoglobin 10.8 g/dL (12.0-15.5); Mean Corpuscular Hemoglobin 34.4 pg (27.0-33.0); Mean Corpuscular Volume 107.0 fL (81.6-98.3); Platelet Count 272 10x3/uL (150-450); Red Blood Cell (RBC) Count 3.14 10x6/uL (3.90-5.03); White Blood Cell (WBC) Count 6.14 10x3/uL (3.5-10.5)
[2025-01-18 15:40] LABS: Anion Gap 16 mmol/L (10-20); BUN (Urea Nitrogen) 25 mg/dL (9.8-20.1); Calc. Creatinine Clearance 0 mL/min (70-130); Calcium 8.6 mg/dL (7.8-10.44); Carbon Dioxide 20 mmol/L (23-31); Chloride 108 mmol/L (98-107); Glucose 93 mg/dL (80-115); Potassium 4.6 mmol/L (3.5-5.1); Sodium 139 mmol/L (136-145)
== END 2025-01-18 14:03 | disposition home or self-care (01) ==
LOC: CSHLAB 14:02
PROVIDERS: ATTEND Surgery
DX: Z01.818 Encounter for other preprocedural examination (principal); R13.19 Other dysphagia; R94.31 Abnormal electrocardiogram [ECG] [EKG]
CPT/HCPCS: 80048; 85027; 93005; 93010